=== PATIENT | male | born 1955 | race Caucasian/White ===

== ENCOUNTER 2018-04-13 08:12 | Emergency (ER) | payer MEDICAID ==
[~2018-04-13 08:12] MED LIST: AMLO2.5T74 PO; ASPI-715 PO; ASPI-757 PO; CELE-1 PO; HYDR2TAB74 PO; LOR5/325 PO; METO25TA91 PO; MULT1CAP41 PO; NIC21T TD; NO RTN MEDS; NON; OMEP-125 PO; OMEP-137 PO; OMEP-153 PO; OMEP40CA48 PO; PRAV40TA78 PO; SIMV-54 PO; SUCR1TAB85 PO; cholesterol
--- NOTE | 2018-04-13 08:26 | ER Report ---
History and Physical Time Seen By MD: 08:25 Hx. of Stated Complaint: PATIENT REPORTS THAT HE STARTED HAVING RIGHT SIDED ABDOMINAL/FLANK PAIN AROUND 0300 THIS MORNING. PATIENT DENIES DIFFICULY WIH URINATION AND DENIES BLOOD IN URINE HPI/ROS CHIEF COMPLAINT: Right-sided flank pain HISTORY OF PRESENT ILLNESS: Patient with sudden onset right flank pain that occurred early this morning and has worsened. Associated with some nausea but no vomiting. Patient states pain radiates up the back along the paraspinal area. There is no radiation to the groin or testicle. Patient denies any dysuria or hematuria but does report decreased urinary output. Patient has not had similar episodes in the past and denies having kidney stones in the past. REVIEW OF SYSTEMS: Constitutional: No fever, no chills. Eyes: No discharge. ENT: No sore throat. Cardiovascular: No chest pain, no palpitations. Respiratory: No cough, no shortness of breath. Gastrointestinal: Right-sided flank pain, nausea without vomiting Genitourinary: No hematuria. Musculoskeletal: No back pain. Right-sided upper thoracic back pain Skin: No rashes. Neurological: No headache. Allergies: Coded Allergies: No Known Allergies (Verified Allergy, Mild, 09/10/17) Home Meds Discontinued Reported Medications Omeprazole (OMEPRAZOLE) 20 Mg Tablet.dr, 20 MG PO 4xd 01/13/15 Aspirin (ASPIRIN) 325 Mg Tablet, 325 MG PO QDAY, TAB 01/06/15 Simvastatin (SIMVASTATIN) 40 Mg Tablet, 40 MG PO HS, TAB 01/06/15 Amlodipine Besylate (AMLODIPINE BESYLATE) 2.5 Mg Tablet, 1 TAB PO QDAY, #30 TAB TAKE ONE TABLET BY MOUTH EVERY DAY 07/03/14 Discontinued Scripts Hydromorphone Hcl (DILAUDID) 2 Mg Tablet, 2 MG PO Q4-6H Y for PAIN, #15 TAB 0 Refills Prov:MYAH PAIGE MD 01/06/15 Sucralfate (CARAFATE) 1 Gm Tablet, 1 GM PO QID, #120 TAB 0 Refills Prov:MYAH PAIGE MD 01/06/15 Past Medical/Surgical History Past Medical/Surgical History Patient has a past medical and surgical history of heart catheterization 2, nuclear stress test, coronary artery disease, angina, hypertension, hypercholesterolemia, 40+ year smoking, left lower quadrant pain, right inguinal hernia repair, prostatitis, arthritis, broken ribs, tib-fib fracture, back injury, degenerative disc disease, full dentures, depression, anxiety, colonoscopy. Hx Smoking: Yes Smoking Status: Current: Every Day Smoker Hx Substance Use Disorder: No Hx Alcohol Use: Yes (rare) Constitutional Vital Sign - Last 24 Hours 04/13/18 04/13/18 04/13/18 04/13/18 08:12 08:18 08:18 08:20 Temp 98.3 Pulse ??? 62 Resp 24 B/P (MAP) 193/100 193/100 (131) 164/101 (122) Pulse Ox 96 O2 Delivery Room Air 04/13/18 04/13/18 04/13/18 04/13/18 08:30 08:42 09:52 09:57 Pulse 56 56 B/P (MAP) 152/89 (110) 164/116 (132) Pulse Ox 98 97 04/13/18 04/13/18 04/13/18 04/13/18 10:00 10:27 10:30 10:35 Pulse 52 59 B/P (MAP) 147/106 (120) 148/89 (108) Pulse Ox 95 94 04/13/18 10:49 B/P (MAP) 112/90 (97) Intake and Output 04/13/18 04/13/18 04/14/18 15:00 23:00 07:00 Intake Total 1000 ml Balance 1000 ml Physical Exam General Appearance: The patient is alert, has no immediate need for airway protection and no signs of toxicity. Eyes: Pupils equal and round no pallor or injection. ENT, Mouth: Mucous membranes are moist. Respiratory: There are no retractions, lungs are clear to auscultation. Cardiovascular: Regular rate and rhythm. Gastrointestinal: Abdomen is soft and non tender, no masses, bowel sounds normal. Right sided flank pain Neurological: Awake and alert Skin: Warm and dry, no rashes. Musculoskeletal: Neck is supple non tender. Extremities are nontender, nonswollen and have full range of motion. Medical Decision Making Data Points Result Diagram: 04/13/18 0825 04/13/18 0825 Laboratory Hematology Test 04/13/18 08:25 04/13/18 09:54 Red Blood Count 6.11 M/uL (4.00-5.60) Mean Corpuscular Volume 81.0 fL (80.0-96.0) Mean Corpuscular Hemoglobin 27.7 pg (26.0-33.0) Mean Corpuscular Hemoglobin Concent 34.2 g/dL (32.0-36.0) Red Cell Distribution Width 14.4 % (11.5-14.5) Mean Platelet Volume 8.8 fL (7.2-11.1) Neutrophils (%) (Auto) 49.8 % (39.4-72.5) Lymphocytes (%) (Auto) 35.9 % (17.6-49.6) Monocytes (%) (Auto) 10.3 % (4.1-12.4) Eosinophils (%) (Auto) 2.6 % (0.4-6.7) Basophils (%) (Auto) 1.4 % (0.3-1.4) Nucleated RBC Relative Count (auto) 0.0 /100WBC Neutrophils # (Auto) 3.2 K/uL (2.0-7.4) Lymphocytes # (Auto) 2.3 K/uL (1.3-3.6) Monocytes # (Auto) 0.7 K/uL (0.3-1.0) Eosinophils # (Auto) 0.2 K/uL (0.0-0.5) Basophils # (Auto) 0.1 K/uL (0.0-0.1) Nucleated RBC Absolute Count (auto) 0.00 K/uL Sodium Level 140 mmol/L (137-145) Potassium Level 4.3 mmol/L (3.5-5.0) Chloride Level 102 mmol/L (98-107) Carbon Dioxide Level 27 mmol/L (22-30) Blood Urea Nitrogen 15 mg/dl (9-21) Creatinine 1.10 mg/dl (0.66-1.25) Glomerular Filtration Rate Calc > 60.0 Random Glucose 104 mg/dl (75-110) Calcium Level 9.8 mg/dl (8.4-10.2) Total Bilirubin 0.5 mg/dl (0.2-1.3) Aspartate Amino Transf (AST/SGOT) 25 U/L (0-35) Alanine Aminotransferase (ALT/SGPT) 25 U/L (0-56) Alkaline Phosphatase 87 U/L (0-126) Total Protein 7.1 g/dl (6.3-8.2) Albumin 3.9 g/dl (3.5-5.0) Lipase 55 U/L (23-300) Urine Color Yellow Urine Clarity Clear Urine pH 6.0 pH (4.8-9.5) Urine Specific [place] 1.018 Urine Protein Negative mg/dL (NEGATIVE) Urine Glucose (UA) Negative mg/dL (NEGATIVE) Urine Ketones Negative mg/dL (NEGATIVE) Urine Blood Negative (NEGATIVE) Urine Nitrite Negative (NEGATIVE) Urine Bilirubin Negative (NEGATIVE) Urine Urobilinogen Negative mg/dL (0.2-1.9) Urine Leukocyte Esterase Small (NEGATIVE) Urine RBC 2 /HPF (0-2/HPF) Urine WBC 4 /HPF (0-5/HPF) Urine Squamous Epithelial Cells None /LPF (</=FEW) Urine Bacteria Negative /HPF (NONE-FEW) Urine Mucus None /HPF (NONE-FEW) Chemistry Test 04/13/18 08:25 04/13/18 09:54 White Blood Count 6.4 k/uL (4.5-11.0) Red Blood Count 6.11 M/uL (4.00-5.60) Hemoglobin 16.9 g/dL (14.0-18.0) Hematocrit 49.5 % (42.0-52.0) Mean Corpuscular Volume 81.0 fL (80.0-96.0) Mean Corpuscular Hemoglobin 27.7 pg (26.0-33.0) Mean Corpuscular Hemoglobin Concent 34.2 g/dL (32.0-36.0) Red Cell Distribution Width 14.4 % (11.5-14.5) Platelet Count 280 K/uL (150-450) Mean Platelet Volume 8.8 fL (7.2-11.1) Neutrophils (%) (Auto) 49.8 % (39.4-72.5) Lymphocytes (%) (Auto) 35.9 % (17.6-49.6) Monocytes (%) (Auto) 10.3 % (4.1-12.4) Eosinophils (%) (Auto) 2.6 % (0.4-6.7) Basophils (%) (Auto) 1.4 % (0.3-1.4) Nucleated RBC Relative Count (auto) 0.0 /100WBC Neutrophils # (Auto) 3.2 K/uL (2.0-7.4) Lymphocytes # (Auto) 2.3 K/uL (1.3-3.6) Monocytes # (Auto) 0.7 K/uL (0.3-1.0) Eosinophils # (Auto) 0.2 K/uL (0.0-0.5) Basophils # (Auto) 0.1 K/uL (0.0-0.1) Nucleated RBC Absolute Count (auto) 0.00 K/uL Glomerular Filtration Rate Calc > 60.0 Calcium Level 9.8 mg/dl (8.4-10.2) Total Bilirubin 0.5 mg/dl (0.2-1.3) Aspartate Amino Transf (AST/SGOT) 25 U/L (0-35) Alanine Aminotransferase (ALT/SGPT) 25 U/L (0-56) Alkaline Phosphatase 87 U/L (0-126) Total Protein 7.1 g/dl (6.3-8.2) Albumin 3.9 g/dl (3.5-5.0) Lipase 55 U/L (23-300) Urine Color Yellow Urine Clarity Clear Urine pH 6.0 pH (4.8-9.5) Urine Specific [place] 1.018 Urine Protein Negative mg/dL (NEGATIVE) Urine Glucose (UA) Negative mg/dL (NEGATIVE) Urine Ketones Negative mg/dL (NEGATIVE) Urine Blood Negative (NEGATIVE) Urine Nitrite Negative (NEGATIVE) Urine Bilirubin Negative (NEGATIVE) Urine Urobilinogen Negative mg/dL (0.2-1.9) Urine Leukocyte Esterase Small (NEGATIVE) Urine RBC 2 /HPF (0-2/HPF) Urine WBC 4 /HPF (0-5/HPF) Urine Squamous Epithelial Cells None /LPF (</=FEW) Urine Bacteria Negative /HPF (NONE-FEW) Urine Mucus None /HPF (NONE-FEW) Urinalysis Test 04/13/18 09:54 Urine Color Yellow Urine Clarity Clear Urine pH 6.0 pH (4.8-9.5) Urine Specific [place] 1.018 Urine Protein Negative mg/dL (NEGATIVE) Urine Glucose (UA) Negative mg/dL (NEGATIVE) Urine Ketones Negative mg/dL (NEGATIVE) Urine Blood Negative (NEGATIVE) Urine Nitrite Negative (NEGATIVE) Urine Bilirubin Negative (NEGATIVE) Urine Urobilinogen Negative mg/dL (0.2-1.9) Urine Leukocyte Esterase Small (NEGATIVE) Urine RBC 2 /HPF (0-2/HPF) Urine WBC 4 /HPF (0-5/HPF) Urine Squamous Epithelial Cells None /LPF (</=FEW) Urine Bacteria Negative /HPF (NONE-FEW) Urine Mucus None /HPF (NONE-FEW) ED Course/Re-evaluation ED Course 04/13/2018 10:47:23 am patient improved after 15 mg of IV Toradol. Ultrasound of both kidneys reveals a normal appearance of the right kidney with multiple renal cysts on the left. Blood work urinalysis is unremarkable. Symptoms have improved. We'll prescribe pain medication and nausea medication my feeling is at this time that the patient's symptoms are musculoskeletal. Patient understands if he develops fever or worsening symptoms to return to the emergency department for reevaluation. Decision to Disposition Date: Apr 13, 2018 Decision to Disposition Time: 11:21 Depart Departure Latest Vital Signs Vital Signs Date Time Temp Pulse Resp B/P (MAP) Pulse Ox O2 Delivery O2 Flow Rate FiO2 04/13/18 10:49 112/90 (97) 04/13/18 10:35 59 94 04/13/18 08:18 98.3 24 Room Air Impression: Primary Impression: Right flank pain Condition: Improved Disposition: HOME OR SELF-CARE Referrals: PAULINE BYRD (PCP) 2 Days if symptoms persist Patient Instructions: Flank Pain (ED) Additional Instructions: Returned to the emergency department at any time if you develop fever, pain that is not controlled with your current pain medications, or intractable vomiting GINNY CARROLL MD Apr 13, 2018 08:26
[2018-04-13] MEDS ORDERED: NS(*) 0.9% 1000 ML BAG 1,000 ML IV ONE (08:43)
[2018-04-13] MEDS ORDERED: ONDANSETRON 4 MG/2 ML VIAL IVP ONE (08:45)
[2018-04-13] MEDS ORDERED: KETOROLAC 30 MG/ML VIAL IVP ONE (08:45)
[2018-04-13 09:12] LABS: PLATELET COUNT, AUTOMATED 280 K/uL (150-450)
--- NOTE | 2018-04-13 09:27 | RADIOLOGY IMAGING REPORT ---
FACILITY: [facility] PATIENT NAME: Derek Pereyra : 1955 MR: [id number] V: [id number] EXAM DATE: [id number] ORDERING PHYSICIAN: GINNY CARROLL TECHNOLOGIST: Location: [facility] - [place], [place] Patient: Derek Pereyra : 1955 Visit/Account:[id number] Date of Sevice: 04/13/2018 Exam type: ACUTE ABDOMEN SERIES 3 VIEW INDICATION: Abdominal pain since 3:30 AM with nausea. COMPARISON: Chest radiograph dated January 06, 2015. Acute abdominal series dated January 06, 2015. FINDINGS: Heart size within normal limits. There is no focal infiltrate or consolidation. Mild hyper expansion the lungs with mild chronic interstitial changes. No evidence of pneumothorax or pleural e ffusion. Bowel gas seen throughout the abdomen in a nonobstructive pattern. Moderate to large volume stool wi thin the right hemicolon. There are no pathologic calcifications identified. No evidence of free air under the right hemidiaphragm. Scoliotic curvature of the lumbar spine. IMPRESSION: 1. No acute cardiopulmonary process. 2. Nonobstructive bowel gas pattern. 3. Moderate to large volume stool within the right hemicolon. Report Dictated By: Yefri Day MD at 04/13/2018 9:21 AM Report E-Signed By: Yefri Day MD at 04/13/2018 9:23 AM WSN:[email or web address]
--- NOTE | 2018-04-13 10:39 | RADIOLOGY IMAGING REPORT ---
FACILITY: [facility] - [place], [place] PATIENT NAME: Derek Pereyra : 1955 MR: [id number] V: [id number] EXAM DATE: ORDERING PHYSICIAN: GINNY CARROLL TECHNOLOGIST: Location: [facility] - [place] Patient: Derek Pereyra : 1955 Visit/Account:[id number] Date of Sevice: 04/13/2018 KIDNEYS HISTORY: Right flank pain. COMPARISON: None. FINDINGS: Kidneys: Right kidney- 9.1 x 5.6 x 5.6 cm with normal parenchymal thickness and echogenicity. No visualized n ephrolithiasis Left kidney- 10.3 x 5.5 x 5.6 cm with normal parenchymal thickness and echogenicity. Parapelvic rita l cyst measuring 4.4 x 3.7 x 2.2 cm cortical cyst within the superior pole measuring up to 1.5 mm. Uniform and symmetric blood flow in each kidney by Doppler ultrasound. Hydronephrosis: None. Bladder: Unremarkable. Abdominal aorta and IVC: Patent by Doppler ultrasound. IMPRESSION: 1. No acute findings. No sonographic explanationfor the patient's right-sided flank pain. 2. Left-sided renal cysts. Report Dictated By: Yefri Day MD at 04/13/2018 10:31 AM Report E-Signed By: Yefri Day MD at 04/13/2018 10:33 AM WSN:[email or web address]
[2018-04-13 10:49] VITALS: BP 112/90
== END 2018-04-13 10:56 | disposition home or self-care (01) ==
LOC: ER 08:28
DX: N28.1 Cyst of kidney, acquired (principal); M54.9 Dorsalgia, unspecified
CPT/HCPCS: 74022; 76705; 81001; 83690; 85025; 96361; 96374; 96375; 99284; J1885; J2405; J7030; 82040; 82247; 82310; 82374; 82435; 82565; 82947; 84075; 84132; 84155; 84295; 84450; 84460; 84520

== ENCOUNTER 2018-06-27 13:46 | Emergency (ER) | payer MEDICAID ==
--- NOTE | 2018-06-27 14:00 | ER Report ---
History and Physical Time Seen By MD: 13:59 Hx. of Stated Complaint: PATIENT REPORTS LEFT SHOULDER AND NECK PAIN. HE ALSO REPORTS NAUSEA HPI/ROS CHIEF COMPLAINT: Left-sided neck pain HISTORY OF PRESENT ILLNESS: Patient's a 62-year-old male comes in with left- sided neck pain history of degenerative disc disease torticollis in the past as a left muscular a section of the neck pain with rotation laterally and some left shoulder discomfort patient has no shortness of breath nausea vomiting diarrhea fever chills to follow no additional complaints on a patient denies shortness of this happened to him numerous times in the past normally responds [id number] but this time it is not otherwise unremarkable no other a dditional complaints noted REVIEW OF SYSTEMS: Respiratory: No cough, no dyspnea. Cardiovascular: No chest pain, no palpitations. Gastrointestinal: No vomiting, no abdominal pain. Musculoskeletal: Stiff neck Remainder of the 14 system rev: Yes Allergies: Coded Allergies: No Known Allergies (Verified Allergy, Mild, 09/10/17) Reviewed Nurses Notes: Yes Old Medical Records Reviewed: Yes Hx Smoking: Yes Smoking Status: Current: Every Day Smoker Hx Substance Use Disorder: No Hx Alcohol Use: Yes (rare) Constitutional Vital Sign - Last 24 Hours 06/27/18 06/27/18 13:50 13:52 Pulse 73 Resp 20 B/P (MAP) 173/90 (117) 173/90 Pulse Ox 97 O2 Delivery Room Air Physical Exam General Appearance: The patient is alert, has no immediate need for airway protection and no current signs of toxicity. [ ] Eyes: Pupils equal and round no injection. Respiratory: Chest is non tender, lungs are clear to auscultation. Cardiac: regular rate and rhythm [ ] Gastrointestinal: Abdomen is soft and non tender, no masses, bowel sounds normal. Musculoskeletal: Negative Neck examination shows pain with rotation laterally to the left mild with extension no axial loading discomfort or tenderness otherwise unremarkable exam Extremities have full range of motion and are non tender. Skin: No rashes or lesions. [ ] DIFFERENTIAL DIAGNOSIS: After history and physical exam differential diagnosis was considered for torticollis versus cardiac pathology Medical Decision Making Data Points Result Diagram: 06/27/18 1406 06/27/18 1406 Laboratory Hematology Test 06/27/18 14:06 Red Blood Count 6.08 M/uL (4.00-5.60) Mean Corpuscular Volume 80.1 fL (80.0-96.0) Mean Corpuscular Hemoglobin 27.6 pg (26.0-33.0) Mean Corpuscular Hemoglobin Concent 34.5 g/dL (32.0-36.0) Red Cell Distribution Width 14.1 % (11.5-14.5) Mean Platelet Volume 8.5 fL (7.2-11.1) Neutrophils (%) (Auto) 66.4 % (39.4-72.5) Lymphocytes (%) (Auto) 25.3 % (17.6-49.6) Monocytes (%) (Auto) 6.3 % (4.1-12.4) Eosinophils (%) (Auto) 0.9 % (0.4-6.7) Basophils (%) (Auto) 1.1 % (0.3-1.4) Nucleated RBC Relative Count (auto) 0.0 /100WBC Neutrophils # (Auto) 4.9 K/uL (2.0-7.4) Lymphocytes # (Auto) 1.9 K/uL (1.3-3.6) Monocytes # (Auto) 0.5 K/uL (0.3-1.0) Eosinophils # (Auto) 0.1 K/uL (0.0-0.5) Basophils # (Auto) 0.1 K/uL (0.0-0.1) Nucleated RBC Absolute Count (auto) 0.00 K/uL Sodium Level 137 mmol/L (137-145) Potassium Level 4.1 mmol/L (3.5-5.0) Chloride Level 101 mmol/L (98-107) Carbon Dioxide Level 28 mmol/L (22-30) Blood Urea Nitrogen 13 mg/dl (9-21) Creatinine 1.10 mg/dl (0.66-1.25) Glomerular Filtration Rate Calc > 60.0 Random Glucose 107 mg/dl (75-110) Calcium Level 9.8 mg/dl (8.4-10.2) Total Bilirubin 0.4 mg/dl (0.2-1.3) Aspartate Amino Transf (AST/SGOT) 16 U/L (0-35) Alanine Aminotransferase (ALT/SGPT) 28 U/L (0-56) Alkaline Phosphatase 69 U/L (0-126) Troponin I < 0.012 ng/ml Total Protein 6.9 g/dl (6.3-8.2) Albumin 4.1 g/dl (3.5-5.0) Chemistry Test 06/27/18 14:06 White Blood Count 7.3 k/uL (4.5-11.0) Red Blood Count 6.08 M/uL (4.00-5.60) Hemoglobin 16.8 g/dL (14.0-18.0) Hematocrit 48.7 % (42.0-52.0) Mean Corpuscular Volume 80.1 fL (80.0-96.0) Mean Corpuscular Hemoglobin 27.6 pg (26.0-33.0) Mean Corpuscular Hemoglobin Concent 34.5 g/dL (32.0-36.0) Red Cell Distribution Width 14.1 % (11.5-14.5) Platelet Count 251 K/uL (150-450) Mean Platelet Volume 8.5 fL (7.2-11.1) Neutrophils (%) (Auto) 66.4 % (39.4-72.5) Lymphocytes (%) (Auto) 25.3 % (17.6-49.6) Monocytes (%) (Auto) 6.3 % (4.1-12.4) Eosinophils (%) (Auto) 0.9 % (0.4-6.7) Basophils (%) (Auto) 1.1 % (0.3-1.4) Nucleated RBC Relative Count (auto) 0.0 /100WBC Neutrophils # (Auto) 4.9 K/uL (2.0-7.4) Lymphocytes # (Auto) 1.9 K/uL (1.3-3.6) Monocytes # (Auto) 0.5 K/uL (0.3-1.0) Eosinophils # (Auto) 0.1 K/uL (0.0-0.5) Basophils # (Auto) 0.1 K/uL (0.0-0.1) Nucleated RBC Absolute Count (auto) 0.00 K/uL Glomerular Filtration Rate Calc > 60.0 Calcium Level 9.8 mg/dl (8.4-10.2) Total Bilirubin 0.4 mg/dl (0.2-1.3) Aspartate Amino Transf (AST/SGOT) 16 U/L (0-35) Alanine Aminotransferase (ALT/SGPT) 28 U/L (0-56) Alkaline Phosphatase 69 U/L (0-126) Troponin I < 0.012 ng/ml Total Protein 6.9 g/dl (6.3-8.2) Albumin 4.1 g/dl (3.5-5.0) ED Course/Re-evaluation ED Course ED clinical course medical decision to 62-year-old male comes in with left-sided neck pain is consistent with torticollis x-rays do confirm syncope or degenerative spondylosis changes of the C-spine C6 and C7 levels but also some degenerative of the glenohumeral joint chest x-ray shows consistency with COPD but nothing focal EKG cardiac markers all were negative patient be diagnosed with neck degeneration and torticollis Decision to Disposition Date: Jun 27, 2018 Decision to Disposition Time: 15:50 Depart Departure Latest Vital Signs Vital Signs Date Time Temp Pulse Resp B/P (MAP) Pulse Ox O2 Delivery O2 Flow Rate FiO2 06/27/18 13:52 73 20 173/90 97 Room Air Impression: Primary Impression: Torticollis Additional Impression: Degenerative joint disease Condition: Improved Disposition: HOME OR SELF-CARE Referrals: PAULINE BYRDP (PCP) 5 Days New Scripts Ketorolac Tromethamine (KETOROLAC TROMETHAMINE) 10 Mg Tab 10 MG PO Q6H PRN for PAIN, #12 TAB Prov: CASSANDRA ZAPIEN MD 06/27/18 Diazepam (VALIUM) 5 Mg Tablet 5 MG PO 2-3XD for Muscle Relaxant for 7 Days, #15 TAB Prov: CASSANDRA ZAPIEN MD 06/27/18 Patient Instructions: Spasmodic Torticollis (DC) Problem Qualifiers CASSANDRA ZAPIEN MD Jun 27, 2018 13:59
--- NOTE | 2018-06-27 14:03 | EKG ---
[place] [facility] [place] LUIS BREEN : [id number] MR: [id number] V: [id number] EXAM DATE: ORDERING PHYSICIAN: CASSANDRA ZAPIEN TECHNOLOGIST: Test Reason : Blood Pressure : / mmHG Vent. Rate : 064 BPM Atrial Rate : 064 BPM P-R Int : 140 ms QRS Dur : 088 ms QT Int : 388 ms P-R-T Axes : 075 073 068 degrees QTc Int : 400 ms Sinus rhythm Possible biatrial enlargement Borderline ECG Similar to previous EKGs Confirmed by NOHEMI BARR ([id number] on 06/27/2018 2:42:58 PM Referred By: Confirmed By:NOHEMI BARR
[2018-06-27 14:14] LABS: PLATELET COUNT, AUTOMATED 251 K/uL (150-450)
[2018-06-27 14:47] VITALS: BP 142/82
--- NOTE | 2018-06-27 15:15 | RADIOLOGY IMAGING REPORT ---
FACILITY: [facility] PATIENT NAME: Derek Pereyra : 1955 MR: [id number] V: [id number] EXAM DATE: ORDERING PHYSICIAN: CASSANDRA ZAPIEN TECHNOLOGIST: Location: [facility] - [place] Patient: Derek Pereyra : 1955 Visit/Account:[id number] Date of Sevice: 06/27/2018 CHEST PA AND LAT Indication: pain to neck Comparison: Chest x-ray 09/10/2017 Findings: Lungs: Lungs are clear. There is hyperinflation with flattening of the diaphragms. Mediastinum/pulmonary vasculature: Heart size and pulmonary vasculature are normal. Bones/soft tissues: Normal. IMPRESSION: 1. Clear lungs. 2. Findings consistent with COPD. Report Dictated By: Artemio Ayala at 06/27/2018 3:10 PM Report E-Signed By: Artemio Ayala at 06/27/2018 3:11 PM WSN:[email or web address]
--- NOTE | 2018-06-27 15:15 | RADIOLOGY IMAGING REPORT ---
FACILITY: [facility] PATIENT NAME: Derek Pereyra : 1955 MR: [id number] V: [id number] EXAM DATE: ORDERING PHYSICIAN: CASSANDRA ZAPIEN TECHNOLOGIST: Location: [facility] - [place] Patient: Derek Pereyra : 1955 Visit/Account:[id number] Date of Sevice: 06/27/2018 SHOULDER MIN 2 VIEWS LEFT Indication: pain to neck Comparison: None. Findings: The left clavicle, scapula, and the proximal humerus are intact. There is moderate narrowi ng of the glenohumeral joint and subacromial joint space. IMPRESSION: 1. Moderate general changes glenohumeral joint and subacromial joint space. 2. No evidence of fracture. Report Dictated By: Artemio Ayala at 06/27/2018 3:11 PM Report E-Signed By: Artemio Ayala at 06/27/2018 3:11 PM WSN:[email or web address]
--- NOTE | 2018-06-27 15:19 | RADIOLOGY IMAGING REPORT ---
FACILITY: [facility] PATIENT NAME: Derek Pereyra : 1955 MR: [id number] V: [id number] EXAM DATE: ORDERING PHYSICIAN: CASSANDRA ZAPIEN TECHNOLOGIST: Location: Patient: Derek Pereyra : 1955 Visit/Account:[id number] Date of Sevice: 06/27/2018 CERVICAL SPINE 2 OR 3 VIEW Indication: pain to neck Comparison: None. Findings: There is severe narrowing of the disc space with anterior osteophytes at C5-6 and C6-7. Re maining disc spaces are maintained. There is 1 to 2 mm degenerative anterolisthesis C4-5. There is multilevel facet arthropathy. IMPRESSION: 1. Severe cervical spondylosis C5-6 and C6-7. 2. Multilevel facet arthropathy. Report Dictated By: Artemio Ayala at 06/27/2018 3:11 PM Report E-Signed By: Artemio Ayala at 06/27/2018 3:12 PM WSN:[email or web address]
[2018-06-27] MEDS ORDERED: KET10 PO (15:52)
[2018-06-27] MEDS ORDERED: DIA5 PO (15:52)
== END 2018-06-27 16:02 | disposition home or self-care (01) ==
LOC: ER 13:50
DX: M43.6 Torticollis (principal); M47.892 Other spondylosis, cervical region
CPT/HCPCS: 36415; 71046; 72040; 82040; 82247; 82310; 82374; 82435; 82565; 82947; 84075; 84132; 84155; 84295; 84450; 84460; 84484; 84520; 85025; 93005; 99284

== ENCOUNTER 2018-12-13 07:11 | Emergency (ER) | payer MEDICAID ==
[~2018-12-13 07:11] MED LIST changes: -AMLO2.5T74 PO; +AMLO2.5T78 PO; +DIA5 PO; +KET10 PO
[2018-12-13] MEDS ORDERED: ASPIRIN 81 MG CHEW PO ONE (07:40)
[2018-12-13] MEDS ORDERED: MAG HYD/AL HYD/SIMETH 30ML UDC PO ONE (07:40)
[2018-12-13] MEDS ORDERED: FAMOTIDINE(*) 20MG/50ML PREMIX 50 ML IVPB ONE (07:40)
[2018-12-13] MEDS ORDERED: LIDOCAINE 2% VISC SLN 15ML UDC PO ONE (07:40)
--- NOTE | 2018-12-13 07:44 | ER Report ---
History and Physical Time Seen By MD: 07:30 Hx. of Stated Complaint: resolved bronchitis, pain in L side chest onset 4am radiating into jaw, tightness. HPI/ROS CHIEF COMPLAINT: Chest pain HISTORY OF PRESENT ILLNESS: Patient awoke at zero 400 this morning with chest pain on the left side radiating to his neck and jaw. Pain is been constant. Pain is 8 out of 10. He has not had pain this intense but has had similar pains in the past. There are no clear exacerbating or relieving factors. Patient notes that he has had nausea for 24 hours. This was slightly improved by coffee and a donut this morning. He has no associated shortness of breath, diaphoresis. He does note some lingering shortness of breath after being treated for bronchitis one month ago. He has not had swelling in his legs or recent travel he has had no prior DVT. He has had prior cardiac workups for similar pain. His last catheter was 3 years ago; per patient a stent was not needed. There is no family history of cardiac disease. Patient does admit to a half pack a day tobacco use. REVIEW OF SYSTEMS: Constitutional: No fever, no chills. Eyes: No discharge. ENT: No sore throat. Cardiovascular: above Respiratory: abovd Gastrointestinal: No abdominal pain, no vomiting. Genitourinary: no dysuria Musculoskeletal: No back pain. Skin: No rashes. Neurological: No headache. Remainder of the 14 system rev: Yes Allergies: Coded Allergies: No Known Allergies (Verified Allergy, Mild, 09/10/17) Home Meds Active Scripts Ketorolac Tromethamine (KETOROLAC TROMETHAMINE) 10 Mg Tab, 10 MG PO Q6H PRN for PAIN, #12 TAB Prov:CASSANDRA ZAPIEN MD 06/27/18 Diazepam (VALIUM) 5 Mg Tablet, 5 MG PO 2-3XD for Muscle Relaxant for 7 Days, #15 TAB Prov:CASSANDRA ZAPIEN MD 06/27/18 Reviewed Nurses Notes: Yes Old Medical Records Reviewed: Yes Hx Smoking: Yes Smoking Status: Current: Every Day Smoker Hx Substance Use Disorder: Yes (marijuana ) Hx Alcohol Use: Yes (rare) Constitutional Vital Sign - Last 24 Hours 12/13/18 12/13/18 12/13/18 12/13/18 07:11 07:15 07:18 07:26 Temp 97.4 Pulse ??? 54 59 Resp 18 20 B/P (MAP) 151/87 151/87 (108) Pulse Ox 95 94 O2 Delivery Room Air 12/13/18 12/13/18 12/13/18 12/13/18 07:30 07:41 07:56 08:00 Pulse 55 54 Resp 26 13 B/P (MAP) 147/91 (109) 140/94 (109) Pulse Ox 93 91 12/13/18 12/13/18 12/13/18 12/13/18 08:11 08:26 08:30 08:41 Pulse 57 53 55 Resp 21 7 9 B/P (MAP) 123/75 (91) Pulse Ox 91 91 92 12/13/18 12/13/18 12/13/18 12/13/18 08:56 09:00 09:05 09:20 Pulse 53 54 52 Resp 9 6 18 B/P (MAP) 120/78 (92) Pulse Ox 93 93 90 12/13/18 12/13/18 12/13/18 12/13/18 09:30 09:35 09:50 10:00 Pulse 52 54 Resp 7 12 B/P (MAP) 126/76 (93) 130/85 (100) Pulse Ox 92 95 12/13/18 12/13/18 12/13/18 12/13/18 10:05 10:30 10:35 10:50 Pulse 57 52 57 Resp 24 11 29 B/P (MAP) 131/69 (89) Pulse Ox 93 93 93 12/13/18 11:00 B/P (MAP) 111/68 (82) Physical Exam General Appearance: The patient is alert, has no immediate need for airway protection and no signs of toxicity. Eyes: Pupils equal and round no pallor or injection. ENT, Mouth: Mucous membranes are moist. Respiratory: There are no retractions, lungs are clear to auscultation. Cardiovascular: Regular rate and rhythm. no m/r/g. No carotid bruits Gastrointestinal: mild epigastric ttp that reproduces pain. No masses, no peritoneal sgs Neurological: alert, moves all ext Skin: Warm and dry, no rashes. Musculoskeletal: Neck is supple non tender. Extremities are nontender, nonswollen and have full range of motion. DIFFERENTIAL DIAGNOSIS: After history and physical exam differential diagnosis was considered for chest pain including but not limited to myocardial ischemia, pericarditis pulmonary embolus, chest wall pain, pleural inflammation and pulmonary infectious causes.abdominal pain including but not limited to appendicitis, cholecystitis, gastritis and urinary tract infection. Medical Decision Making Data Points Result Diagram: 12/13/18 0720 12/13/18 0720 Laboratory Hematology Test 12/13/18 07:20 12/13/18 08:20 12/13/18 10:21 Red Blood Count 6.03 M/uL (4.00-5.60) Mean Corpuscular Volume 82.4 fL (80.0-96.0) Mean Corpuscular Hemoglobin 27.0 pg (26.0-33.0) Mean Corpuscular Hemoglobin Concent 32.7 g/dL (32.0-36.0) Red Cell Distribution Width 14.2 % (11.5-14.5) Mean Platelet Volume 8.7 fL (7.2-11.1) Neutrophils (%) (Auto) 58.0 % (39.4-72.5) Lymphocytes (%) (Auto) 29.5 % (17.6-49.6) Monocytes (%) (Auto) 8.2 % (4.1-12.4) Eosinophils (%) (Auto) 3.3 % (0.4-6.7) Basophils (%) (Auto) 1.0 % (0.3-1.4) Nucleated RBC Relative Count (auto) 0.0 /100WBC Neutrophils # (Auto) 5.6 K/uL (2.0-7.4) Lymphocytes # (Auto) 2.9 K/uL (1.3-3.6) Monocytes # (Auto) 0.8 K/uL (0.3-1.0) Eosinophils # (Auto) 0.3 K/uL (0.0-0.5) Basophils # (Auto) 0.1 K/uL (0.0-0.1) Nucleated RBC Absolute Count (auto) 0.00 K/uL Sodium Level 135 mmol/L (137-145) Potassium Level 4.3 mmol/L (3.5-5.0) Chloride Level 102 mmol/L (98-107) Carbon Dioxide Level 26 mmol/L (22-30) Blood Urea Nitrogen 14 mg/dl (9-21) Creatinine 1.00 mg/dl (0.66-1.25) Glomerular Filtration Rate Calc > 60.0 Random Glucose 100 mg/dl (75-110) Calcium Level 10.0 mg/dl (8.4-10.2) Total Bilirubin 0.5 mg/dl (0.2-1.3) Aspartate Amino Transf (AST/SGOT) 20 U/L (0-35) Alanine Aminotransferase (ALT/SGPT) 26 U/L (0-56) Alkaline Phosphatase 89 U/L (0-126) Total Protein 6.9 g/dl (6.3-8.2) Albumin 4.1 g/dl (3.5-5.0) Lipase 28 U/L (23-300) Urine Color Yellow Urine Clarity Clear Urine pH 5.0 pH (4.8-9.5) Urine Specific [place] 1.015 Urine Protein Negative mg/dL (NEGATIVE) Urine Glucose (UA) Negative mg/dL (NEGATIVE) Urine Ketones Negative mg/dL (NEGATIVE) Urine Blood Negative (NEGATIVE) Urine Nitrite Negative (NEGATIVE) Urine Bilirubin Negative (NEGATIVE) Urine Urobilinogen Negative mg/dL (0.2-1.9) Urine Leukocyte Esterase Trace (NEGATIVE) Urine RBC None /HPF (0-2/HPF) Urine WBC 2 /HPF (0-5/HPF) Urine Squamous Epithelial Cells None /LPF (</=FEW) Urine Bacteria Negative /HPF (NONE-FEW) Urine Mucus Few /HPF (NONE-FEW) Troponin I < 0.012 ng/ml Chemistry Test 12/13/18 07:20 12/13/18 08:20 12/13/18 10:21 White Blood Count 9.7 k/uL (4.5-11.0) Red Blood Count 6.03 M/uL (4.00-5.60) Hemoglobin 16.3 g/dL (14.0-18.0) Hematocrit 49.7 % (42.0-52.0) Mean Corpuscular Volume 82.4 fL (80.0-96.0) Mean Corpuscular Hemoglobin 27.0 pg (26.0-33.0) Mean Corpuscular Hemoglobin Concent 32.7 g/dL (32.0-36.0) Red Cell Distribution Width 14.2 % (11.5-14.5) Platelet Count 268 K/uL (150-450) Mean Platelet Volume 8.7 fL (7.2-11.1) Neutrophils (%) (Auto) 58.0 % (39.4-72.5) Lymphocytes (%) (Auto) 29.5 % (17.6-49.6) Monocytes (%) (Auto) 8.2 % (4.1-12.4) Eosinophils (%) (Auto) 3.3 % (0.4-6.7) Basophils (%) (Auto) 1.0 % (0.3-1.4) Nucleated RBC Relative Count (auto) 0.0 /100WBC Neutrophils # (Auto) 5.6 K/uL (2.0-7.4) Lymphocytes # (Auto) 2.9 K/uL (1.3-3.6) Monocytes # (Auto) 0.8 K/uL (0.3-1.0) Eosinophils # (Auto) 0.3 K/uL (0.0-0.5) Basophils # (Auto) 0.1 K/uL (0.0-0.1) Nucleated RBC Absolute Count (auto) 0.00 K/uL Glomerular Filtration Rate Calc > 60.0 Calcium Level 10.0 mg/dl (8.4-10.2) Total Bilirubin 0.5 mg/dl (0.2-1.3) Aspartate Amino Transf (AST/SGOT) 20 U/L (0-35) Alanine Aminotransferase (ALT/SGPT) 26 U/L (0-56) Alkaline Phosphatase 89 U/L (0-126) Total Protein 6.9 g/dl (6.3-8.2) Albumin 4.1 g/dl (3.5-5.0) Lipase 28 U/L (23-300) Urine Color Yellow Urine Clarity Clear Urine pH 5.0 pH (4.8-9.5) Urine Specific [place] 1.015 Urine Protein Negative mg/dL (NEGATIVE) Urine Glucose (UA) Negative mg/dL (NEGATIVE) Urine Ketones Negative mg/dL (NEGATIVE) Urine Blood Negative (NEGATIVE) Urine Nitrite Negative (NEGATIVE) Urine Bilirubin Negative (NEGATIVE) Urine Urobilinogen Negative mg/dL (0.2-1.9) Urine Leukocyte Esterase Trace (NEGATIVE) Urine RBC None /HPF (0-2/HPF) Urine WBC 2 /HPF (0-5/HPF) Urine Squamous Epithelial Cells None /LPF (</=FEW) Urine Bacteria Negative /HPF (NONE-FEW) Urine Mucus Few /HPF (NONE-FEW) Troponin I < 0.012 ng/ml Urinalysis Test 12/13/18 08:20 Urine Color Yellow Urine Clarity Clear Urine pH 5.0 pH (4.8-9.5) Urine Specific [place] 1.015 Urine Protein Negative mg/dL (NEGATIVE) Urine Glucose (UA) Negative mg/dL (NEGATIVE) Urine Ketones Negative mg/dL (NEGATIVE) Urine Blood Negative (NEGATIVE) Urine Nitrite Negative (NEGATIVE) Urine Bilirubin Negative (NEGATIVE) Urine Urobilinogen Negative mg/dL (0.2-1.9) Urine Leukocyte Esterase Trace (NEGATIVE) Urine RBC None /HPF (0-2/HPF) Urine WBC 2 /HPF (0-5/HPF) Urine Squamous Epithelial Cells None /LPF (</=FEW) Urine Bacteria Negative /HPF (NONE-FEW) Urine Mucus Few /HPF (NONE-FEW) EKG/Imaging EKG Interpretation 12 lead EKG: Rhythm: sinus bradycardia [place]: normal QRS: normal ST segments: normal [No sig change from Jun 16 Repeat EKG without significant change. Monitor Interpretation: Normal Sinus Rhythm ED Course/Re-evaluation ED Course 63-year-old male presents with left-sided chest pain and pressure with radiation. This was preceded by nausea for the past day. Well I certainly considered acute coronary syndrome as a possible cause, patient does not have clear evidence of this in the emergency department. Specifically, negative tro ponin 2 and EKG without change from prior and without dynamic changes in the emergency department. His heart score is 3 after ED evaluation, so reasonable for discharge with close follow-up. Patient understands need for stress test within the next 3-5 days. However, as pain was followed by nausea times one day, not associated with exertion, completely relieved after GI cocktail, symptoms are consistent with possible gastritis or PUD. Therefore I recommend he starts Pepcid as well as aspirin daily to protect his heart and it is reasonable for discharge with strict return precautions. Patient is amenable to this plan. Decision to Disposition Date: Dec 13, 2018 Decision to Disposition Time: 11:36 Depart Departure Latest Vital Signs Vital Signs Date Time Temp Pulse Resp B/P (MAP) Pulse Ox O2 Delivery O2 Flow Rate FiO2 12/13/18 11:00 111/68 (82) 12/13/18 10:50 57 29 93 12/13/18 07:15 97.4 Room Air Impression: Primary Impression: Chest pain Additional Impression: Nausea Condition: Improved Disposition: HOME OR SELF-CARE Referrals: PAULINE BYRD (PCP) 2 Days Patient Instructions: Chest Pain (ED), Gastritis (ED) Additional Instructions: As we discussed, I recommend that you have your primary doctor schedule a stress test as soon as possible to further evaluate her heart. I recommend you start Pepcid 20 mg daily. This is an [id number] medication, also called famotidine. This will help stomach inflammation which I think may be the source severe pain. Please follow up with her primary doctor to further evaluate this as well. Please return immediately for worsening symptoms or any concerns. Problem Qualifiers Primary Impression: Chest pain Chest pain type: unspecified Qualified Codes: R07.9 - Chest pain, unspecified GINNY CHAPIN MD Dec 13, 2018 07:44
[2018-12-13 07:45] LABS: PLATELET COUNT, AUTOMATED 268 K/uL (150-450)
--- NOTE | 2018-12-13 08:25 | RADIOLOGY IMAGING REPORT ---
FACILITY: [facility] PATIENT NAME: Derek Pereyra : 1955 MR: [id number] V: [id number] EXAM DATE: ORDERING PHYSICIAN: GINNY CHAPIN TECHNOLOGIST: Location: [facility] - [place] Patient: Derek Pereyra : 1955 Visit/Account:[id number] Date of Sevice: 12/13/2018 CHEST SINGLE AP COMPARISONS: 2 view chest dated June 27, 2018 ADDITIONAL PERTINENT HISTORY: Chest pain and left arm weakness FINDINGS: Cardiomediastinal silhouette: Negative. Pulmonary vasculature: Negative. Lung velazquez: Minimal bibasilar regions of scarring. Otherwise negative Pleural spaces: Negative. Osseous structures: Negative. Surrounding soft tissues: Negative. IMPRESSION: 1. Minimal bibasilar regions of scarring. 2. No acute cardiopulmonary disease. Report Dictated By: Troy Mejia MD at 12/13/2018 8:17 AM Report E-Signed By: Troy Mejia MD at 12/13/2018 8:21 AM WSN:[id number]
--- NOTE | 2018-12-13 10:49 | EKG ---
[place] [facility] [place]IENT NAME: LUIS BREEN : [id number] MR: [id number] V: [id number] EXAM DATE: ORDERING PHYSICIAN: GINNY CHAPIN TECHNOLOGIST: Test Reason : chest pain Blood Pressure : / mmHG Vent. Rate : 059 BPM Atrial Rate : 059 BPM P-R Int : 146 ms QRS Dur : 090 ms QT Int : 394 ms P-R-T Axes : 081 081 075 degrees QTc Int : 390 ms Sinus bradycardia Otherwise normal ECG When compared with ECG of 27-JUN-2018 13:57, No significant change was found Confirmed by Bran Gatica ([id number]) on 12/13/2018 11:05:26 PM Referred By: Confirmed By:Bran Randle
[2018-12-13 11:30] VITALS: BP 102/74
--- NOTE | 2018-12-13 14:49 | EKG ---
FACILITY: [facility] - [place] PATIENT NAME: LUIS BREEN : [id number] MR: [id number] V: [id number] EXAM DATE: ORDERING PHYSICIAN: GINNY CHAPIN TECHNOLOGIST: NICK Test Reason : CHEST PAIN Blood Pressure : / mmHG Vent. Rate : 050 BPM Atrial Rate : 050 BPM P-R Int : 152 ms QRS Dur : 088 ms QT Int : 402 ms P-R-T Axes : 084 078 074 degrees QTc Int : 366 ms Sinus bradycardia Otherwise normal ECG When compared with ECG of 13-DEC-2018 07:16, No significant change was found Confirmed by Bran Gatica ([id number]) on 12/13/2018 11:09:10 PM Referred By: TAVARES Confirmed By:Bran Randle
== END 2018-12-13 11:48 | disposition home or self-care (01) ==
LOC: ER 07:30
DX: R07.9 Chest pain, unspecified (principal); R11.0 Nausea
CPT/HCPCS: 36415; 71045; 81001; 83690; 84484; 85025; 93005; 96365; 99284; J3490; 82040; 82247; 82310; 82374; 82435; 82565; 82947; 84075; 84132; 84155; 84295; 84450; 84460; 84520

== ENCOUNTER → 2019-04-11 | Outpatient (CLI) | payer MEDICAID ==
[~2019-04-11] MED LIST changes: -OMEP-125 PO; +OMEP-126 PO
[2019-04-11 07:38] LABS: PLATELET COUNT, AUTOMATED 287 K/uL (150-450)
[2019-04-11 08:28] LABS: LDL CHOLESTEROL 99 mg/dl
== END ==
LOC: LAB 07:23
PROVIDERS: ATTEND Nurse Practitioner Psychiatric/Mental Health
DX: E78.5 Hyperlipidemia, unspecified (principal); R50.9 Fever, unspecified; I10 Essential (primary) hypertension
CPT/HCPCS: 36415; 82040; 82247; 82310; 82374; 82435; 82465; 82565; 82947; 83718; 84075; 84132; 84155; 84295; 84443; 84450; 84460; 84478; 84520; 85025